=== PATIENT | female | born 1950 | race Two or more races ===

== ENCOUNTER 2019-12-20 21:01 | Emergency (ER) | payer MEDICARE, OTHER ==
[~2019-12-20] VITALS: Ht 162.6 cm; Wt 85.3 kg
[~2019-12-20 21:01] MED LIST: AMOXICILLIN500 MG ORAL; BENADRYL50 MG ORAL; COZAAR25 MG ORAL; COZAAR50 MG ORAL; CYCLOBENZAPRINE10 MG ORAL; IBUPROFEN600 MG ORAL; NORCO 5-325 TA1 EACH ORAL
[2019-12-20 21:10] VITALS: BP 130/88
--- NOTE | 2019-12-20 21:10 | NUR ---
ED Nurse Note: Pt walked into ED from home for c/o R earache x 2 days. Pt states pain started yesterday and has become severely worse. Pt notes pain is aching/throbbing in nature. Pt denies any trauma, throat pain, cough, SOB or fever. Pt states she took ibuprofen approx. an hour ago prior to arrival and has had no relief. Pt is aaox4, no respiratory or cardiac distress noted.
[2019-12-20] MEDS ORDERED: OFLOXACIN5 ML RIGHT EAR (21:35)
[2019-12-20 21:40] VITALS: BP 128/90
--- NOTE | 2019-12-20 21:40 | NUR ---
ER DISCHARGE NOTE: Patient is cleared to be discharged per ERMD, pt is aox4, on room air, with stable vital signs. pt was given dc and prescription instructions, pt was able to verbalize understanding, pt id band removed. pt is able to ambulate with steady gait. pt took all belongings.
--- NOTE | 2019-12-25 22:28 | Emergency Room Report ---
History of Present Illness General Chief Complaint: Earache Source: Patient Present Illness HPI 69-year-old female presents complaining of R ear pain for 2 days. Pain is dull , 6 out of 10, nonradiating. Denies fevers or chills. Denies cough. Denies congestion. Denies sick contacts or recent travel. No other aggravating relieving factors. Denies any other associated symptoms Allergies: Coded Allergies: No Known Allergies (Unverified , 02/22/14) COVID-19 Screening Contact w/high risk pt: No Recent Travel to affected area: No Experienced COVID-19 symptoms?: No COVID-19 Testing performed DELIVERY [employer]: No Patient History Past Medical History: DM Pertinent Family History: none Social History: Denies: smoking, alcohol use, drug use Now: No Immunizations: UTD Reviewed Nursing Documentation: PMH: Agreed; PSxH: Agreed Nursing Documentation-PMH Past Medical History: No History, Except For Hx Hypertension: Yes Hx Diabetes: Yes - diet-controlled Review of Systems All Other Systems: negative except mentioned in HPI Physical Exam Sp02 EP Interpretation: reviewed, normal General Appearance: no apparent distress, alert, GCS 15, non-toxic Head: normocephalic, atraumatic Eyes: bilateral eye normal inspection, bilateral eye PERRL ENT: hearing grossly normal, normal pharynx, no angioedema, normal voice, other - R ear canal swollen, TTP\ Neck: full range of motion, supple/symm/no masses Respiratory: chest non-tender, lungs clear, normal breath sounds, speaking full sentences Cardiovascular #1: regular rate, rhythm, no edema Cardiovascular #2: 2+ carotid (R), 2+ carotid (L), 2+ radial (R), 2+ radial (L) , 2+ dorsalis pedis (R), 2+ dorsalis pedis (L) Gastrointestinal: normal bowel sounds, non tender, soft, non-distended, no guarding, no rebound Rectal: deferred Genitourinary: normal inspection, no CVA tenderness Musculoskeletal: back normal, normal range of motion, gait/station normal, non- tender Neurologic: alert, motor strength/tone normal, oriented x3, sensory intact, responsive, speech normal Psychiatric: judgement/insight normal, memory normal, mood/affect normal, no suicidal/homicidal ideation Reflexes: 3+ bicep (R), 3+ bicep (L), 3+ tricep (R), 3+ tricep (L), 3+ knee (R) , 3+ knee (L) Lymphatic: no adenopathy Medical Decision Making Diagnostic Impression: Primary Impression: Otitis externa Qualified Codes: H60.501 - Unspecified acute noninfective otitis externa, right ear ER Course Hospital Course 69-year-old F presents to ED with pain R ear Differential diagnoses include: TM perforation, otitis externa, otitis media Clinical course Patient placed on stretcher. After initial history, physical exam reveals a female in no acute distress. Right ear canal swollen and tender to palpation. Right TM unremarkable. I discussed findings with patient. Consistent with otitis externa. Will discharge home with prescriptions. Safe for discharge with close outpatient follow-up. I will provide referrals Diagnosis - otitis externa Stable and discharged to home with Rx ofloxacin otic. Followup with PMD. Return to ED if symptoms recur or worsen Status: improved Disposition: HOME, SELF-CARE Condition: Stable Scripts Ofloxacin (OFLOXACIN) 5 Ml Drops 10 DROP RIGHT EAR DAILY for 7 Days, ML Prov: Amadou Shah MD 12/20/19 Referrals: Zack ALEXANDER,REFERRING (PCP) Yuan Contreras MD Patient Instructions: Otitis Externa, [id number] Additional Instructions: you can try over the counter drops like auralgan to help with your ear pain. Amadou Shah MD Dec 25, 2019 22:28
== END 2019-12-20 21:40 | disposition home or self-care (01) ==
LOC: EMR 21:40
DX: H60.501 Unspecified acute noninfective otitis externa, right ear (principal); E11.9 Type 2 diabetes mellitus without complications; I10 Essential (primary) hypertension
CPT/HCPCS: 99282